=== PATIENT | female | born 1995 | race Caucasian/White ===

== ENCOUNTER → 2019-07-08 | Outpatient (CLI) | payer OTHER ==
--- NOTE | 2019-07-08 14:34 | KCIC ---
EXAM: Lumbar spine, 8 views. HISTORY: Pain. COMPARISON: None. FINDINGS: Frontal, lateral, bilateral oblique, flexion and extension and coned sacral views of the lumbar spine are obtained. There is mild levoscoliosis centered at L3. There is no listhesis or abnormal motion between flexion and extension. The vertebral bodies are normal in height and the disc spaces are preserved. IMPRESSION: Mild lumbar levoscoliosis. Electronically signed by: Teresita Ramirez MD (07/08/2019 2:31 PM) [place] [id number]
== END | disposition home or self-care (01) ==
LOC: KCIC 13:59
PROVIDERS: ATTEND Family Medicine
DX: M41.86 Other forms of scoliosis, lumbar region (principal)
CPT/HCPCS: 72114

== ENCOUNTER → 2020-08-24 | Outpatient (CLI) | payer OTHER ==
--- NOTE | 2020-08-24 13:59 | KCIC ---
EXAM: RIGHT SHOULDER 3 VIEWS. HISTORY: Right shoulder pain. COMPARISON: None. FINDINGS: No fractures are identified. Glenohumeral joint spaces and alignment are maintained. Acromioclavicular joint spaces and alignment are maintained. There is moderate lateral acromial downsloping. IMPRESSION: 1. Lateral acromial downsloping. Correlate for impingement. Electronically signed by: Jose Marroquin MD (08/24/2020 1:56 PM) [id number]
== END ==
LOC: KCIC 12:29
PROVIDERS: ATTEND Family Medicine
DX: M25.511 Pain in right shoulder (principal)
CPT/HCPCS: 73030